=== PATIENT | female | born 1975 | race Caucasian/White ===

== ENCOUNTER 2016-06-05 19:57 | Emergency (ER) | payer BC ==
[2016-06-05] MEDS ORDERED: Levalbuterol 0.63MG/3ML NEB INH ONE (20:12)
[2016-06-05] MEDS ORDERED: predniSONE TAB* 20 MG PO ONE (20:12)
[2016-06-05 20:15] VITALS: BP 128/53
--- NOTE | 2016-06-05 20:48 | UC ---
Asthma HPI - HPI Summary HPI Summary: hx of asthma has been having exacerbation this week, increased in her dulera by PCP, has been using ProAir more than usual the past two days, cant seem to catch breaths, her cough is persistent and audible wheezing and Rhonchi noted. stidor present. neg for URI symptoms. - History of Current Complaint Chief Complaint: UCGeneralIllness Stated Complaint: ASTHMA Hx Obtained From: Patient Hx Last Menstrual Period: 3 WKS AGO Onset/Duration: Sudden Onset, Lasting Days Timing: Constant Initial Severity: Moderate Current Severity: Severe Location/Character: Cough (Nonproductive) Aggravating: Exertion, Weather Change Alleviating: Nothing - Allergy/Home Medications Allergies/Adverse Reactions: Allergies Allergy/AdvReac Type Severity Reaction Status Date / Time No Known Allergies Allergy Verified 06/05/16 20:30 Home Medications: Home Medications Albuterol HFA INHALER* [Ventolin HFA Inhaler*] 2 puff INH Q4H PRN 06/05/16 [ History Confirmed 06/05/16] Mometasone/Formoter 200/5 MDI* [Dulera 200/5 MDI*] 2 puff INH BID 06/05/16 [ History Confirmed 06/05/16] Norgestimate-Ethinyl Estradiol [Tri-Linyah] 1 tab PO DAILY 06/05/16 [History Confirmed 06/05/16] predniSONE TAB* [Deltasone TAB*] 30 mg PO BID 06/05/16 [History Confirmed ] PMH/Surg Hx/FS Hx/Imm Hx Previously Healthy: Yes Cardiovascular History Of: Denies: Pacemaker/ICD Respiratory History Of: Reports: Asthma - Childhood asthma - Surgical History Surgical History: None - Family History Known Family History: Positive: Respiratory Disease - Social History Alcohol Use: Occasionally Substance Use Type: None Smoking Status (MU): Never Smoked Tobacco Review of Systems Constitutional: Negative Skin: Negative Eyes: Negative ENT: Sore Throat Respiratory: Shortness Of Breath, Cough Cardiovascular: Negative Gastrointestinal: Negative Genitourinary: Negative Motor: Negative Neurovascular: Negative Musculoskeletal: Negative Neurological: Negative Psychological: Anxious All Other Systems Reviewed And Are Negative: Yes Physical Exam Triage Information Reviewed: Yes Appearance: Well-Nourished, Ill-Appearing, Pain Distress Vital Signs: Initial Vital Signs Temp 99 F 06/05/16 20:10 Pulse 84 06/05/16 20:10 Resp 14 06/05/16 20:10 BP 128/53 06/05/16 20:10 Pulse Ox 98 06/05/16 20:10 Vital Signs Reviewed: Yes Eye Exam: Normal Eyes: Positive: Conjunctiva Clear ENT: Positive: Hearing grossly normal, Pharyngeal erythema, TMs normal Dental Exam: Normal Neck exam: Normal Neck: Positive: Supple, Nontender, No Lymphadenopathy Respiratory: Positive: Respiratory distress - cant take deep breath, stridor and rhonchi present, o2 sat is 98 %, color is good, talking cant talk without irritation, Stridor, Wheezing, Expiration, Inspiration Cardiovascular Exam: Normal Cardiovascular: Positive: RRR, No Murmur, Pulses Normal Abdominal Exam: Normal Abdomen Description: Positive: Nontender, No Organomegaly, Soft Bowel Sounds: Positive: Present Musculoskeletal Exam: Normal Musculoskeletal: Positive: Strength Intact, ROM Intact, No Edema Neurological Exam: Normal Neurological: Positive: Alert, Muscle Tone Normal Psychological Exam: Normal Skin: Positive: Other - sweating and flushed Asthma Course/Dx - Course Course Of Treatment: hx obtained, exam performed, neb treatment given, prednisone given, not responding to treatment, will be going to [facility] via private care, paperwork signed and ER notified. - Differential Dx/Diagnosis Differential Diagnosis/HQI/PQRI: Acute Asthma Provider Diagnoses: asthma exacerbation - Physician Notification/Consults Discussed Patient Care With: [facility] provider Discharge - Discharge Plan Condition: Stable Disposition: AGAINST MEDICAL ADVICE
== END 2016-06-05 20:46 | disposition left against medical advice (07) ==
LOC: UCCORT 19:57
DX: J45.901 Unspecified asthma with (acute) exacerbation (principal)
CPT/HCPCS: 99213; A9270-GY; G0463; J7512

== ENCOUNTER 2018-04-12 09:22 | Emergency (ER) | payer BC, OTHER ==
--- OUTSIDE RECORDS SUMMARY | 2018-04-12 12:10 | XMS REPORT | Continuity of Care Document ---
:1975 External Reference #:[id number] Author Name Ruba Boothe Care Team Providers Name Role Phone Naila Rivera MD Care Team Information Marketing Researcher Unavailable Naila Rivera MD Primary Care Physician Unavailable Payers Type Date Identification Numbers Payment Provider Subscriber Policy Number: [id number] [facility] Plan Kiara Moya PayID: [id number] [address] [place] [address] Advance Directives Description No Information Available Problems Date Description Provider Status Onset: 03/10/2015 Anaphylactic reaction due to Taye Houston MD Active unspecified food, subsequent encounter Onset: 06/02/2016 Exacerbation of moderate Jodie S. Fenstermacher, RPA-C Active persistent asthma Onset: 06/02/2016 Allergic rhinitis due to pollen Jodie S. Fenstermacher, RPA -C Active Onset: 06/02/2016 Allergic rhinitis Jodie S. Fenstermacher, RPA-C Active Onset: 06/16/2016 Acute bronchitis Jodie S. Fenstermacher, RPA-C Active Onset: 06/16/2016 Uncomplicated moderate Ojdie S. Fenstermacher, RPA-C Active persistent asthma Onset: 07/20/2017 Mild intermittent asthma PRECIOUS Howell Active Family History Description No Information Available Social History Type Date Description Comments Sex Unknown Tobacco Use Start: Unknown Patient has never smoked Smoking Status Reviewed: 07/20/17 Patient has never smoked Allergies, Adverse Reactions, Alerts Description No Known Drug Allergies Medications Medication Date Status Form Strength Qnty SIG Indications Ordering Provider Cetirizine HCL 01/19 Active Tablets 10mg 30tab Take one J30.1 s tablet by Sam Houston MD mouth daily at bedtime. [place] Nasal Mist Active Solution 2.65% Unknown Allergy & Sinus / Hypertonic Saline [place] Saline Nasal Active Swab Unknown Gel / Qnasl 05/15 Hx Aerosol 80mcg/Act 8.7un instill 2 its sprays ESTEBAN Cruz - into each 04/03 nostril once daily Ventolin HFA 01/19 Hx Aerosol 108(90Bas 18gm Inhale 2 J45.40 e) puffs by Sam Houston MD - mcg/Act inhalation 04/03 route Q4 hours as needed Zithromax Z-Sudhakar 06/16 Hx Tablets 250mg 1Pak Take as J20.9 directed Sam Houston MD - 07/18 Prednisone 06/02 Hx Tablets 10mg 30tab Take 3 J45.41 s tablets by Sam Houston MD - mouth 07/18 twice day for 5 days. Take with food. Proair HFA 06/02 Hx Aerosol 108(90Bas 8.500 Inhale 2 J45.41 e) gm puffs Q4 Sam Houston MD - mcg/Act hours as 01/19 needed. Dulera 06/02 Hx Aerosol 200-5mcg/ 1unit Inhale 2 J45.41 Act s puffs by Sam Houston MD - inhalation 07/20 route times per day in the morning and evening. Rinse mouth after use. Cetirizine HCL 05/11 Hx Tablets 10mg 30tab take one s tablet by Sam Houston MD - mouth 10/07 every at bedtime Qnasl 03/26 Hx Aerosol 80mcg/Act 8.7un 2 puffs its each ESTEBAN Cruz - nostril 06/02 every Zyrtec Allergy 07/08 Hx Tablets 10mg Take one tablet po - daily at 06/02 bedtime /2016 Symbicort Hx Aerosol 160-4.5mc 1unit inhale 2 Christopher g/Act s puffs by Sam Houston MD - inhalation 06/02 route times per day in the morning and evening for 99 days Qnasl Hx Aerosol 80mcg/Act 1unit spray 2 Christopher / s sprays Sam Houston MD - (160 mcg) 06/02 in nostril by intranasal route once daily for 99 days Levocetirizine Hx Tablets 5mg 30tab take 1 Narciso, Dihydrochloride / s tablet (5 Anthony, RPA-C - mg) by 01/19 oral route once daily as needed Proventil HFA Hx Aerosol 108(90Bas 2 puffs Unknown 0000 e) every 4 as - mcg/Act needed 06/16 Claritin Hx Capsules 10mg Unknown / - 04/03 Ipratropium Hx Solution 0.03% spray 2 Unknown Climax 0000 sprays in - each 01/19 nostril 3x daily. Medications Administered in Office Medication Date Status Form Strength Qnty SIG Indications Ordering Provider Allergy 11/29/ Administered Injection Christopher Injection Or 2016 Sam Houston MD More Allergy 11/22/ Administered Injection Christopher Injection Or 2016 Sam Houston MD More Allergy 11/15/ Administered Injection Christopher Injection Or 2016 Sam Houston MD More Allergy 11/08/ Administered Injection Christopher Injection Or 2016 Sam Houston MD More Allergy 11/01/ Administered Injection Christopher Injection Or 2016 Sam Houston MD More Allergy 10/25/ Administered Injection Christopher Injection Or 2016 Sam Houston MD More Allergy 09/27/ Administered Injection Christopher Injection Or 2016 Sam Houston MD More Allergy 08/30/ Administered Injection Christopher Injection Or 2016 Sam Houston MD More Allergy 08/16/ Administered Injection Christopher Injection Or 2016 Sam Houston MD More Allergy 08/02/ Administered Injection Christopher Injection Or 2016 Sam Houston MD More Allergy 07/19/ Administered Injection Christopher Injection Or 2016 Sam Houston MD More Allergy 05/31/ Administered Injection Christopher Injection Or 2016 Sam Houston MD More Allergy 05/03/ Administered Injection Christopher Injection Or 2016 Sam Houston MD More Allergy 04/05/ Administered Injection Christopher Injection Or 2016 Sam Houston MD More Allergy /03/ Administered Injection Christopher Injection 2 Or 2016 Sam Houston MD More Allergy // Administered Injection Christopher Injection 2 Or 2015 Sam Houston MD More Allergy // Administered Injection Christopher Injection 2 Or 2015 Sam Houston MD More Allergy // Administered Injection Christopher Injection 2 Or 2015 Sam Houston MD More Allergy // Administered Injection Christopher Injection 2 Or 2015 Sam Houston MD More Allergy // Administered Injection Christopher Injection 2 Or 2015 Sam Houston MD More Allergy // Administered Injection Christopher Injection 2 Or 2015 Sam Houston MD More Allergy /30/ Administered Injection Christopher Injection 2 Or 2015 Sam Houston MD More Allergy 08/16/ Administered Injection Christopher Injection 2 Or 2015 Sam Houston MD More Allergy 08/02/ Administered Injection Christopher Injection 2 Or 2015 Sam Houston MD More Allergy 07/19/ Administered Injection Christopher Injection 2 Or 2015 Sam Houston MD More Allergy 07/05/ Administered Injection Christopher Injection 2 Or 2015 Sam Houston MD More Allergy 06/21/ Administered Injection Christopher Injection 2 Or 2015 Sam Houston MD More Allergy 06/14/ Administered Injection Christopher Injection 2 Or 2015 Sam Houston MD More Allergy 06/07/ Administered Injection Christopher Injection 2 Or 2015 Sam Houston MD More Allergy 05// Administered Injection Christopher Injection 2 Or 2015 Sam Houston MD More Allergy 05/24/ Administered Injection Christopher Injection 2 Or 2015 Sam Houston MD More Allergy 05/17/ Administered Injection Christopher Injection 2 Or 2015 Sam Houston MD More Allergy 05/10/ Administered Injection Christopher Injection 2 Or 2015 Sam Houston MD More Allergy 05/03/ Administered Injection Christopher Injection 2 Or 2015 Sam Houston MD More Allergy 04/19/ Administered Injection Christopher Injection 2 Or 2015 Sam Houston MD More Allergy 04/12/ Administered Injection Christopher Injection 2 Or 2015 Sam Houston MD More Allergy 04/05/ Administered Injection Christopher Injection 2 Or 2015 Sam Houston MD More Allergy // Administered Injection Christopher Injection 2 Or 2015 Sam Houston MD More Allergy // Administered Injection Christopher Injection 2 Or 2015 Sam Houston MD More Allergy 05/18/ Administered Injection Christopher Injection 2 Or 2015 Sam Houston MD More Allergy 05/11/ Administered Injection Christopher Injection 2 Or 2015 Sam Houston MD More Allergy 05/04/ Administered Injection Christopher Injection 2 Or 2015 Sam Houston MD More Allergy 04/21/ Administered Injection Christopher Injection 2 Or 2015 Sam Houston MD More Allergy 04/14/ Administered Injection Christopher Injection 2 Or 2015 Sam Houston MD More Allergy 04/07/ Administered Injection Christopher Injection 2 Or 2015 Sam Houston MD More Allergy 03/31/ Administered Injection Christopher Injection 2 Or 2015 Sam Houston MD More Allergy 03/24/ Administered Injection Christopher Injection 2 Or 2015 Sam Houston MD More Allergy 03/17/ Administered Injection Christopher Injection 2 Or 2015 Sam Houston MD More Injection, 03/10/ Administered Injection Christopher Adrenalin, 2015 Sam Houston MD Epinephrine, 0.1 MG Therapeutic, 03/10/ Administered Injection Christopher Prophylactic 2015 Sam Houston MD Or Diagnostic Injection Subq/Im Allergy 03/10/ Administered Injection Christopher Injection 2 Or 2015 Sam Houston MD More Allergy 02/24/ Administered Injection Christopher Injection 2 Or 2014 Sam Houston MD More Allergy 02/17/ Administered Injection Christopher Injection 2 Or 2014 Sam Houston MD More Allergy 02/10/ Administered Injection Christopher Injection 2 Or 2014 Sam Houston MD More Allergy 02/03/ Administered Injection Christopher Injection 2 Or 2014 Sam Houston MD More Allergy 01/27/ Administered Injection Christopher Injection 2 Or 2014 Sam Houston MD More Allergy 01/20/ Administered Injection Christopher Injection 2 Or 2014 Sam Houston MD More Allergy 01/13/ Administered Injection Christopher Injection 2 Or 2014 Sam Houston MD More Allergy 01/06/ Administered Injection Christopher Injection 2 Or 2014 Sam Houston MD More Allergy 01/01/ Administered Injection Christopher Injection 2 Or 2014 Sam Houston MD More Immunizations Description No Information Available Vital Signs Date Vital Result Comment 04/03/2018 3:39pm BP Systolic 110 mmHg BP Diastolic 72 mmHg Height 61 inches 5'1" Weight 150.00 lb BMI (Body Mass Index) 28.3 kg/m2 Heart Rate 45 /min Respiratory Rate 18 /min O2 % BldC Oximetry 98 % 07/20/2017 1:01pm BP Systolic 100 mmHg BP Diastolic 70 mmHg Height 61 inches 5'1" Weight 153.00 lb weighed today BMI (Body Mass Index) 28.9 kg/m2 Heart Rate 57 /min Respiratory Rate 15 /min Body Temperature 98.7 F O2 % BldC Oximetry 92 % 01/19/2017 12:57pm BP Systolic 116 mmHg BP Diastolic 70 mmHg Height 61 inches 5'1" Weight 154.00 lb BMI (Body Mass Index) 29.1 kg/m2 Heart Rate 60 /min Respiratory Rate 16 /min Body Temperature 99.3 F O2 % BldC Oximetry 99 % 07/19/2016 12:57pm Height 61 inches 5'1" Weight 144.00 lb BMI (Body Mass Index) 27.2 kg/m2 Heart Rate 46 /min Respiratory Rate 16 /min Body Temperature 97.4 F O2 % BldC Oximetry 99 % 06/16/2016 3:21pm BP Systolic 136 mmHg BP Diastolic 87 mmHg Height 61 inches Weight 144.00 lb BMI (Body Mass Index) 27.2 kg/m2 Heart Rate 97 /min Respiratory Rate 18 /min Body Temperature 99.1 F O2 % BldC Oximetry 97 % 06/02/2016 1:11pm BP Systolic 116 mmHg BP Diastolic 77 mmHg Height 61 inches 5'1" Weight 149.00 lb BMI (Body Mass Index) 28.2 kg/m2 Heart Rate 68 /min Respiratory Rate 16 /min Body Temperature 98.0 F O2 % BldC Oximetry 98.1 % 07/08/2014 2:04pm BP Systolic 120 mmHg BP Diastolic 75 mmHg Height 61 inches Weight 140.00 lb Heart Rate 66 /min 06/24/2014 10:30am BP Systolic 120 mmHg BP Diastolic 71 mmHg Height 61 inches Weight 140.00 lb Heart Rate 78 /min Results Description No Information Available Procedures Date Code Description Status 07/20/2017 18806 Nitric Oxide Gas Determination Completed 07/20/2017 98045 Nitric Oxide Gas Determination Completed 07/20/2017 74545 Bronchodilation Responsiveness Spirometry Pre/Post Completed Bronchodil Adm 07/20/2017 12769 Bronchodilation Responsiveness Spirometry Pre/Post Completed Bronchodil Adm 01/19/2017 39011 Nitric Oxide Gas Determination Completed 01/19/2017 93541 Bronchodilation Responsiveness Spirometry Pre/Post Completed Bronchodil Adm 2016 66656 Allergy Injection 2 Or More Completed 11/22/2016 78303 Allergy Injection 2 Or More Completed 11/15/2016 21151 Allergy Injection 2 Or More Completed 11/09/2016 57341 Allergy Antigens Single Or Multiple Completed 11/08/2016 40349 Allergy Injection 2 Or More Completed 11/01/2016 48656 Allergy Injection 2 Or More Completed 10/25/2016 58899 Allergy Injection 2 Or More Completed 09/27/2016 69578 Allergy Injection 2 Or More Completed 08/30/2016 86178 Allergy Injection 2 Or More Completed 08/16/2016 36202 Allergy Injection 2 Or More Completed 08/02/2016 99673 Allergy Injection 2 Or More Completed 07/19/2016 21818 Allergy Injection 2 Or More Completed 06/16/2016 96031 Nitric Oxide Gas Determination Completed 06/16/2016 13386 Bronchodilation Responsiveness Spirometry Pre/Post Completed Bronchodil Adm 06/02/2016 31802 Nitric Oxide Gas Determination Completed 05/31/2016 93587 Allergy Injection 2 Or More Completed 05/03/2016 28289 Allergy Injection 2 Or More Completed 04/05/2016 97375 Allergy Injection 2 Or More Completed 03/08/2016 71736 Allergy Injection 2 Or More Completed 02/23/2016 85387 Allergy Injection 2 Or More Completed 02/02/2016 19099 Allergy Injection 2 Or More Completed 01/19/2016 57581 Allergy Antigens Single Or Multiple Completed 12/29/2015 33684 Allergy Injection 2 Or More Completed 12/15/2015 44452 Allergy Injection 2 Or More Completed 12/01/2015 82608 Allergy Injection 2 Or More Completed 11/17/2015 78925 Allergy Injection 2 Or More Completed 11/03/2015 93606 Allergy Injection 2 Or More Completed 10/20/2015 01537 Allergy Injection 2 Or More Completed 10/06/2015 83096 Allergy Injection 2 Or More Completed 09/22/2015 28262 Allergy Injection 2 Or More Completed 09/08/2015 93058 Allergy Injection 2 Or More Completed 08/25/2015 10115 Allergy Injection 2 Or More Completed 08/18/2015 80644 Allergy Injection 2 Or More Completed 08/11/2015 72035 Allergy Injection 2 Or More Completed 08/04/2015 82102 Allergy Injection 2 Or More Completed 07/28/2015 78769 Allergy Injection 2 Or More Completed 07/21/2015 78808 Allergy Injection 2 Or More Completed 07/14/2015 20463 Allergy Injection 2 Or More Completed 07/07/2015 85057 Allergy Injection 2 Or More Completed 06/23/2015 74282 Allergy Injection 2 Or More Completed 06/16/2015 30844 Allergy Injection 2 Or More Completed 06/09/2015 00516 Allergy Injection 2 Or More Completed 06/02/2015 04954 Allergy Injection 2 Or More Completed 05/26/2015 52338 Allergy Injection 2 Or More Completed 05/19/2015 62665 Allergy Injection 2 Or More Completed 05/12/2015 65080 Allergy Injection 2 Or More Completed 05/05/2015 20325 Allergy Injection 2 Or More Completed 05/05/2015 42624 Allergy Antigens Single Or Multiple Completed 04/21/2015 99841 Allergy Injection 2 Or More Completed 04/14/2015 12404 Allergy Injection 2 Or More Completed 04/07/2015 74081 Allergy Injection 2 Or More Completed 03/31/2015 53890 Allergy Injection 2 Or More Completed 03/24/2015 15079 Allergy Injection 2 Or More Completed 03/17/2015 11116 Allergy Injection 2 Or More Completed 03/10/2015 23431 Therapeutic, Prophylactic Or Diagnostic Injection Subq/Im Completed 03/10/2015 89816 Allergy Injection 2 Or More Completed 02/24/2015 61129 Allergy Injection 2 Or More Completed 02/17/2015 40319 Allergy Injection 2 Or More Completed 02/10/2015 53654 Allergy Injection 2 Or More Completed 02/03/2015 58420 Allergy Injection 2 Or More Completed 01/27/2015 87988 Allergy Injection 2 Or More Completed 01/20/2015 67518 Allergy Injection 2 Or More Completed 01/13/2015 88062 Allergy Injection 2 Or More Completed 01/06/2015 42081 Allergy Injection 2 Or More Completed 01/01/2015 81168 Allergy Injection 2 Or More Completed Encounters Type Date Location Provider Dx Diagnosis Office Visit 07/20/2017 [facility]CIOUS [facility] J45.20 Mild intermittent asthma, 1:00p uncomplicated J30.1 Allergic rhinitis due to pollen J30.89 Other allergic rhinitis Office Visit 01/19/2017 1:00p Naedr Larson45.40 Moderate persistent Fenstermacher, RPA-C asthma, uncomplicated J30.1 Allergic rhinitis due to pollen J30.89 Other allergic rhinitis Office Visit 07/19/2016 1:00p Nader Hancock J45.40 Moderate persistent Fenstermacher, RPA-C asthma, uncomplicated J30.1 Allergic rhinitis due to pollen J30.89 Other allergic rhinitis Office Visit 06/16/2016 3:00p Nader Hancock J20.9 Acute bronchitis, Fenstermacher, RPA-C unspecified J45.40 Moderate persistent asthma, uncomplicated J30.1 Allergic rhinitis due to pollen J30.89 Other allergic rhinitis Office Visit 06/02/2016 1:00p Nader Hancock J45.41 Moderate Fenstermacher, RPA-C persistent asthma with (acute) exacerbation J30.1 Allergic rhinitis due to pollen J30.89 Other allergic rhinitis Office Visit 03/10/2015 12:45p Nader Vargas T78.00xD Anaphylactic MD Cel[place] reaction due to unspecified food, subs encntr Office Visit 03/10/2015 12:36p Nader Vargas J30.1 Allergic rhinitis MD Celso due to pollen J30.89 Other allergic rhinitis T78.00xD Anaphylactic reaction due to unspecified food, subs encntr Office Visit 03/10/2015 12:36p Nader Vargas T78.00xD Anaphylactic MD Celso reaction due to unspecified food, subs encntr Plan of Treatment 07/20/2017 - PRECIOUS HowellJ45.20 Mild intermittent asthma, uncomplicatedComments:Patient's PFT is within normal range and exhaled nitric oxide is 14 ppb. Patient has not used any inhaled steroid the past 5 months. Patient will use Proair for breakthrough chest symptoms. Patient touse Nasonex for prophylaxis of her nose and cetirizine for breakthrough nasal symptoms.Gargling withwarm salt water may help with post nasal drip Patient hopes to stop PFT tests if next visit is normal.Follow up:6 months, PFT and NIOX [id number] Allergic rhinitis due to nytwfkW30.89 Other allergic rhinitis
--- OUTSIDE RECORDS SUMMARY | 2018-04-12 12:10 | XMS REPORT | Continuity of Care Document ---
:1975 External Reference #:[id number] Author Name Taye Houston MD Address [address] [place] [address] Care Team Providers Name Role Phone Naila Rivera MD Care Team Information Dining Room Cashier Unavailable Naila Rivera MD Primary Care Physician Unavailable Payers Type Date Identification Numbers Payment Provider Subscriber Policy Number: [id number] [facility] Plan Kiara Moya PayID: [id number] [address] [place] [address] Advance Directives Description No Information Available Problems [...] Fenstermacher, RPA-C Active Onset: 06/16/2016 Uncomplicated moderate Jodie S. Fenstermacher, RPA-C Active persistent asthma Onset: 07/20/2017 Mild intermittent asthma PRECIOUS [place] Active Family History Description No Information Available Social History Type Date Description Comments Sex Unknown Tobacco Use Start: Unknown Patient has never smoked Smoking Status Reviewed: 04/03/18 Patient has never smoked Allergies, Adverse Reactions, Alerts Description No Known Drug Allergies Medications Medication Date Status Form Strength Qnty SIG Indications Ordering Provider Levocetirizine 04/03 Active Tablets 5mg 30tab Take one J30.1 Christopher Dihydrochloride /2018 s tablet by Sam Houston MD mouth daily at bedtime Qnasl 03/26 Active Aerosol 80mcg/Act 8.7un 2 puffs its each ESTEBAN Cruz nostril every day [place] Nasal Mist Active Solution 2.65% Unknown Allergy & Sinus /0000 Hypertonic Saline [place] Saline Nasal Active Swab Unknown Gel /0000 Qnasl 05/15 Hx Aerosol 80mcg/Act 8.7un instill 2 its sprays ESTEBAN Cruz - into each 04/03 nostril once daily Ventolin HFA 01/19 Hx Aerosol 108(90Bas 18gm Inhale 2 J45.40 e) puffs by Sam Houston MD - mcg/Act inhalation 04/03 route Q hours as needed Cetirizine HCL 01/19 Hx Tablets 10mg 30tab Take one J30.1 s tablet by Sam Houston MD - mouth 04/03 daily at bedtime. Zithromax Z-Sudhakar 06/16 Hx Tablets 250mg 1Pak Take as J20.9 directed Sam Houston MD - 07/18 Prednisone 06/02 Hx Tablets 10mg 30tab Take 3 J45.41 s tablets by Sam Houston MD - mouth 07/18 twice a day for 5 days. Take with food. [...] Sam Houston MD - mouth 10/07 every day at bedtime Zyrtec Allergy 07/08 Hx Tablets 10mg Take one tablet po - daily at 06/02 bedtime /2016 Symbicort Hx Aerosol 160-4.5mc 1unit inhale 2 Christopher /0000 g/Act s puffs by Sam Houston MD [...] HFA Hx Aerosol 108(90Bas 2 puffs Unknown / e) every 4 as - mcg/Act needed 06/16 Claritin Hx Capsules 10mg Unknown / - 04/03 Ipratropium Hx Solution 0.03% spray 2 Unknown [place] /0000 sprays in - each 01/19 nostril daily. Medications Administered in Office Medication Date Status Form Strength Qnty SIG Indications Ordering Provider Allergy 11/29/ Administered Injection Christopher Injection Or 2016 Sam Houston MD More Allergy 11/22/ Administered Injection Christopher Injection Or 2016 Sam Houston MD More Allergy 11/15/ Administered Injection Christopher Injection Or 2016 Sam Houston MD More Allergy 11/08/ Administered Injection Christopher Injection Or 2016 aSm Houston MD More Allergy 11/01/ Administered Injection [...] More Allergy 05/31/ Administered Injection Christopher Injection 2 Or 2016 Sam Houston MD More Allergy 05/03/ Administered Injection Christopher Injection 2 Or 2016 Sam Houston MD More Allergy 04/05/ Administered Injection Christopher Injection 2 Or 2016 Sam Houston MD More Allergy // Administered Injection Christopher Injection 2 Or 2016 Sam Houston MD More Allergy // Administered Injection Christopher Injection 2 Or 2015 Sam Houston MD More Allergy 02/01/ Administered Injection Christopher Injection 2 Or 2015 Sam Houston MD More Allergy 12/28/ Administered Injection Christopher Injection 2 Or 2015 Sam Houston MD More Allergy // Administered Injection Christopher Injection 2 Or 2015 Sam Houston MD More Allergy 11/30/ Administered Injection Christopher Injection 2 Or 2015 [...] Or 2015 Sam Houston MD More Allergy 06/08/ Administered Injection Christopher Injection 2 Or 2015 Sam Houston MD More Allergy 06/01/ Administered Injection Christopher Injection 2 Or 2015 Sam Houston MD More Allergy 05/25/ Administered Injection Christopher Injection 2 Or 2015 [...] Subq/Im Allergy 03/10/ Administered Injection Christopher Injection Or 2015 Sam Houston MD More Allergy 02/24/ Administered Injection Christopher Injection 2 Or 2014 Sam Houston MD More Allergy 02/17/ Administered Injection Christopher Injection Or 2014 Sam Houston MD More Allergy [...] Available Procedures Date Code Description Status 07/20/2017 51823 Nitric Oxide Gas Determination Completed 07/20/2017 91265 Nitric Oxide Gas Determination Completed 07/20/2017 99486 Bronchodilation Responsiveness Spirometry Pre/Post Completed Bronchodil Adm 07/20/2017 53301 Bronchodilation Responsiveness Spirometry Pre/Post Completed Bronchodil Adm 01/19/2017 94625 Nitric Oxide Gas Determination Completed 01/19/2017 46154 Bronchodilation Responsiveness Spirometry Pre/Post Completed Bronchodil Adm 2016 96989 Allergy Injection 2 Or More Completed 11/22/2016 83028 Allergy Injection 2 Or More Completed 11/15/2016 32818 Allergy Injection 2 Or More Completed 11/09/2016 81848 Allergy Antigens Single Or Multiple Completed 11/08/2016 12853 Allergy Injection 2 Or More Completed 11/01/2016 39290 Allergy Injection 2 Or More Completed 10/25/2016 02580 Allergy Injection 2 Or More Completed 09/27/2016 28215 Allergy Injection 2 Or More Completed 08/30/2016 12241 Allergy Injection 2 Or More Completed 08/16/2016 54615 Allergy Injection 2 Or More Completed 08/02/2016 07918 Allergy Injection 2 Or More Completed 07/19/2016 40008 Allergy Injection 2 Or More Completed 06/16/2016 53701 Nitric Oxide Gas Determination Completed 06/16/2016 74952 Bronchodilation Responsiveness Spirometry Pre/Post Completed Bronchodil Adm 06/02/2016 10404 Nitric Oxide Gas Determination Completed 05/31/2016 36574 Allergy Injection 2 Or More Completed 05/03/2016 98196 Allergy Injection 2 Or More Completed 04/05/2016 99430 Allergy Injection 2 Or More Completed 03/08/2016 84531 Allergy Injection 2 Or More Completed 02/23/2016 97196 Allergy Injection 2 Or More Completed 02/02/2016 50099 Allergy Injection 2 Or More Completed 01/19/2016 63180 Allergy Antigens Single Or Multiple Completed 12/29/2015 44573 Allergy Injection 2 Or More Completed 12/15/2015 24123 Allergy Injection 2 Or More Completed 12/01/2015 67802 Allergy Injection 2 Or More Completed 11/17/2015 96209 Allergy Injection 2 Or More Completed 11/03/2015 98532 Allergy Injection 2 Or More Completed 10/20/2015 28400 Allergy Injection 2 Or More Completed 10/06/2015 29988 Allergy Injection 2 Or More Completed 09/22/2015 11323 Allergy Injection 2 Or More Completed 09/08/2015 94316 Allergy Injection 2 Or More Completed 08/25/2015 37222 Allergy Injection 2 Or More Completed 08/18/2015 20309 Allergy Injection 2 Or More Completed 08/11/2015 70238 Allergy Injection 2 Or More Completed 08/04/2015 25110 Allergy Injection 2 Or More Completed 07/28/2015 32233 Allergy Injection 2 Or More Completed 07/21/2015 45233 Allergy Injection 2 Or More Completed 07/14/2015 16060 Allergy Injection 2 Or More Completed 07/07/2015 81503 Allergy Injection 2 Or More Completed 06/23/2015 39679 Allergy Injection 2 Or More Completed 06/16/2015 98215 Allergy Injection 2 Or More Completed 06/09/2015 95510 Allergy Injection 2 Or More Completed 06/02/2015 86769 Allergy Injection 2 Or More Completed 05/26/2015 49448 Allergy Injection 2 Or More Completed 05/19/2015 85777 Allergy Injection 2 Or More Completed 05/12/2015 73714 Allergy Injection 2 Or More Completed 05/05/2015 58402 Allergy Injection 2 Or More Completed 05/05/2015 75509 Allergy Antigens Single Or Multiple Completed 04/21/2015 92579 Allergy Injection 2 Or More Completed 04/14/2015 70830 Allergy Injection 2 Or More Completed 04/07/2015 21469 Allergy Injection 2 Or More Completed 03/31/2015 79471 Allergy Injection 2 Or More Completed 03/24/2015 68736 Allergy Injection 2 Or More Completed 03/17/2015 67630 Allergy Injection 2 Or More Completed 03/10/2015 45219 Therapeutic, Prophylactic Or Diagnostic Injection Subq/Im Completed 03/10/2015 81272 Allergy Injection 2 Or More Completed 02/24/2015 61457 Allergy Injection 2 Or More Completed 02/17/2015 78980 Allergy Injection 2 Or More Completed 02/10/2015 35819 Allergy Injection 2 Or More Completed 02/03/2015 71449 Allergy Injection 2 Or More Completed 01/27/2015 34126 Allergy Injection 2 Or More Completed 01/20/2015 76584 Allergy Injection 2 Or More Completed 01/13/2015 47435 Allergy Injection 2 Or More Completed 01/06/2015 44948 Allergy Injection 2 Or More Completed 01/01/2015 15303 Allergy Injection 2 Or More Completed Encounters Type Date Location Provider Dx Diagnosis Office Visit 04/03/2018 Nader Hancock J30.1 Allergic rhinitis due 3:30p Fenstermacher RPA-C to pollen J30.89 Other allergic rhinitis J45.20 Mild intermittent asthma, uncomplicated Office Visit 07/20/2017 1:00p PRECIOUS [place] J45.20 Mild intermittent asthma, uncomplicated J30.1 Allergic rhinitis due to pollen J30.89 Other allergic rhinitis Office Visit 01/19/2017 1:00p [place] Jodie S. J45.40 Moderate persistent Fenstermacher, RPA-C asthma, uncomplicated J30.1 Allergic rhinitis due to pollen J30.89 Other allergic rhinitis Office Visit 07/19/2016 1:00p [place] Jodie S. J45.40 Moderate persistent Fenstermacher, RPA-C asthma, uncomplicated J30.1 Allergic rhinitis due to pollen J30.89 Other allergic rhinitis Office Visit 06/16/2016 3:00p [place] Jodie Hancock J20.9 Acute bronchitis, Fenstermacher, RPA-C unspecified J45.40 Moderate persistent asthma, uncomplicated J30.1 Allergic rhinitis due to pollen J30.89 Other allergic rhinitis Office Visit 06/02/2016 1:00p [place] Jodie SSanaz J45.41 Moderate Fenstermacher, RPA-C persistent asthma with (acute) exacerbation J30.1 Allergic rhinitis due to pollen J30.89 Other allergic rhinitis Office Visit 03/10/2015 12:45p [place] Vargas T78.00xD Anaphylactic MD [place] reaction due to unspecified food, subs encntr Office Visit 03/10/2015 12:36p Nader Vargas J30.1 Allergic rhinitis MD [place] due to pollen J30.89 Other allergic rhinitis T78.00xD Anaphylactic reaction due to unspecified food, subs encntr Office Visit 03/10/2015 12:36p Nader Vargas T78.00xD Anaphylactic MD [place] reaction due to unspecified food, subs encntr Plan of Treatment Future Appointment(s):10/16/2018 11:00 am - Jodie Londono RPA-R[facility] at [facility]/29/2019 - Jodie Londono RPA-CJ30.1 Allergic rhinitis due to pollenNew Medication:Levocetirizine Dihydrochloride 5 mg - Take one tablet by mouth daily at bedtimeComments:Allergic rhinitis moderately well controlled. Use Xyzal as directed. Okay to restart Qnasl at 1 puffeach nostril daily once nasal dryness has improved. I have encouraged Kiara to use [place] Saline [place] a cool mist humidifier in the bedroom.Follow up:6 months.J30.89 Other allergic mlercxipI24.20 Mild intermittent asthma, uncomplicatedComments:Patient has had no respiratory symptoms since discontinuing her oral contraceptive pill. She should continue to carry ProAir in the event she develops breakthrough coughing , wheezing and/or shortness of breath. Patient would prefer to avoid spirometry and niox testing going forward.Follow up:6 months - No PFT/NIOX
[2018-04-12 12:17] VITALS: BP 122/71
--- NOTE | 2018-04-12 12:46 | UC ---
UC General HPI - HPI Summary HPI Summary: Patient started last night with coughing. Worse today while at work and had to be sent home. No fever. +productive cough and headache. COncerned as she is susceptible to sinus infections and bronchitis. Has not yet used her inhaler. no fever. No body aches. Low grade temp here at urgent care. No N/V/D. Decrease PO. Meds: Reviewed - History of Current Complaint Chief Complaint: UCRespiratory Stated Complaint: COUGH Time Seen by Provider: 04/12/18 12:26 Hx Last Menstrual Period: 3 WKS AGO Pain Intensity: 10 - Allergy/Home Medications Allergies/Adverse Reactions: Allergies Allergy/AdvReac Type Severity Reaction Status Date / Time No Known Allergies Allergy Verified 04/12/18 12:17 Home Medications: Home Medications LevoCETirizine TAB (NF) [Xyzal TAB (NF)] 5 mg PO DAILY 04/12/18 [History Confirmed 04/12/18] Mesalamine [Apriso] 0.375 gm PO 04/12/18 [History] PMH/Surg Hx/FS Hx/Imm Hx Previously Healthy: Yes Respiratory History: Asthma - Surgical History Surgical History: None - Family History Known Family History: Positive: Respiratory Disease - Social History Alcohol Use: Occasionally Substance Use Type: None Smoking Status (MU): Never Smoked Tobacco Review of Systems All Other Systems Reviewed And Are Negative: Yes Constitutional: Positive: Chills ENT: Positive: Sinus Congestion Respiratory: Positive: Cough Physical Exam Triage Information Reviewed: Yes Appearance: Well-Appearing Vital Signs: Initial Vital Signs Temp 100.0 F 04/12/18 12:11 Pulse 77 04/12/18 12:11 Resp 18 04/12/18 12:11 BP 122/71 04/12/18 12:11 Pulse Ox 98 04/12/18 12:11 Vital Signs Reviewed: Yes Eyes: Positive: Conjunctiva Clear ENT: Positive: Pharyngeal erythema, Nasal congestion, TMs normal Neck: Positive: Supple, Nontender Respiratory: Positive: Lungs clear, Normal breath sounds, Other: - persistent cough Cardiovascular: Positive: RRR, No Murmur Skin Exam: Normal Course/Dx - Course Course Of Treatment: This is a 42 yr old with cough and congestion. assessment. Nontoxic appearing. Plan. Continue inhaler every 4-6 hours while sick and awake then as needed. Tessalon pearles as needed. Would recommend ibuprofen 600 mg every 4-6 hours as needed for pain. Continue supportive care - including plenty of fluids. If symptoms persist or worsen, call primary for further evaluation - Diagnoses Provider Diagnosis: Upper respiratory tract infection Discharge - Sign-Out/Discharge Documenting (check all that apply): Patient Departure All imaging exams completed and their final reports reviewed: No Studies - Discharge Plan Condition: Good Disposition: HOME Prescriptions: Albuterol HFA INHALER* [Ventolin HFA Inhaler*] 2 puff INH Q4H PRN #1 mdi PRN Reason: Cough Benzonatate CAP* [Tessalon 100 MG CAP*] 200 mg PO TID PRN #30 cap PRN Reason: Cough Patient Education Materials: Upper Respiratory Infection (ED) Referrals: Ashlee Sibley MD [Primary Care Provider] - Additional Instructions: Continue inhaler every 4-6 hours while sick and awake then as needed Tessalon pearles as needed Would recommend ibuprofen 600 mg every 4-6 hours as needed for pain Continue supportive care - including plenty of fluids If symptoms persist or worsen, call primary for further evaluation - Billing Disposition and Condition Condition: GOOD Disposition: Home
== END 2018-04-12 12:52 | disposition home or self-care (01) ==
LOC: UCCORT 09:22
DX: J06.9 Acute upper respiratory infection, unspecified (principal); J45.909 Unspecified asthma, uncomplicated
CPT/HCPCS: 99212; G0463